=== PATIENT | female | born 1995 | race Caucasian/White ===

== ENCOUNTER 2017-02-04 20:27 | Emergency (ER) | payer OTHER ==
[2017-02-05 00:07] VITALS: BP 91/49
--- NOTE | 2017-02-05 00:17 | ED ---
Daron Gil Rebecca, scribed for Murray Darden MD on 02/04/17 at 2245 . Lower Extremity - HPI Summary HPI Summary: Pt is a 21 y/o F referred from [facility] who presents to ED c/o LLE pain for multiple weeks. Pain is currently moderate, ranked 4/10. Sx aggravated by movement and alleviated by nothing. Denies any other complaints. Is able to ambulate. - History of Current Complaint Chief Complaint: EDExtremityLower Stated Complaint: PAIN LT LEG Time Seen by Provider: 02/04/17 22:39 Hx Obtained From: Patient Hx Last Menstrual Period: over year and half ago, no bcp's, just stopped Onset of Pain: Prior to Arrival Onset/Duration: Weeks Severity Currently: Moderate Pain Intensity: 4 Pain Scale Used: 0-10 Numeric Location: Is Discrete @ - LLE Associated Signs And Symptoms: Positive: Negative Aggravating Factor(s): Movement Alleviating Factor(s): Nothing Able to Bear Weight: Yes - Allergies/Home Medications Allergies/Adverse Reactions: Allergies Allergy/AdvReac Type Severity Reaction Status Date / Time No Known Allergies Allergy Verified 12/05/15 09:51 PMH/Surg Hx/FS Hx/Imm Hx Endocrine/Hematology History: Denies: Hx Diabetes Cardiovascular History: Denies: Hx Congestive Heart Failure, Hx Hypertension, Hx Pacemaker/ICD History: Denies: Hx Renal Disease Musculoskeletal History: Reports: Other Musculoskeletal History - compression fx Sensory History: Denies: Hx Hearing Aid Psychiatric History: Reports: Hx Substance Abuse Denies: Hx Panic Disorder - Surgical History Surgery Procedure, Year, and Place: RIGHT HAND ABSCESS 2012, upper LEFT thigh ABSCESS 2013 Infectious Disease History: Yes Infectious Disease History: Denies: Hx Clostridium Difficile, Hx Hepatitis, Hx Human Immunodeficiency Virus (HIV), Hx Tuberculosis, History Other Infectious Disease, Traveled Outside the [place] in Last 30 Days - Family History Known Family History: Positive: Other - Colon [place] (mother) - Social History Alcohol Use: None Substance Use Type: Reports: Heroin Substance Use Comment - Amount & Last Used: 2 days ago Smoking Status (MU): Current Every Day Smoker Type: Cigarettes Amount Used/How Often: 1/2 PPD Length of Time of Smoking/Using Tobacco: 2 YEARS Have You Smoked in the Last Year: Yes Review of Systems Negative: Fever Positive: Arthralgia - LLE pain for multiple weeks All Other Systems Reviewed And Are Negative: Yes Physical Exam Triage Information Reviewed: Yes Vital Signs On Initial Exam: Initial Vitals Temp Pulse Resp BP Pulse Ox 99.2 F 73 16 94/66 99 02/04/17 20:34 02/04/17 20:34 02/04/17 20:34 02/04/17 20:34 02/04/17 20:34 Vital Signs Reviewed: Yes Appearance: Positive: Well-Appearing, No Pain Distress Skin: Positive: Warm Head/Face: Positive: Normal Head/Face Inspection Eyes: Positive: EV ENT: Positive: Hearing grossly normal Neck: Positive: Supple Respiratory/Lung Sounds: Positive: Clear to Auscultation, Breath Sounds Present Cardiovascular: Positive: RRR Musculoskeletal: Positive: Strength/ROM Intact, Other - no discernable swelling or tenderness. Negative: Lesly Sign Left, Lesly Sign Right Neurological: Positive: Alert, Oriented to Person Place, Time, Normal Gait Psychiatric: Positive: Affect/Mood Appropriate Diagnostics - Vital Signs Vital Signs Temp Pulse Resp BP Pulse Ox 02/04/17 20:34 99.2 F 73 16 94/66 99 - Laboratory Lab Statement: Any lab studies that have been ordered have been reviewed, and results considered in the medical decision making process. - Ultrasound No standard instances Ultrasound Interpretation: No Acute Changes - Venous Doppler Study: No DVT. Radiology report reviewed by ED physician and agrees. Ultrasound Interpretation Completed By: Radiologist Re-Evaluation - Re-Evaluation First Eval Re-Evaluation Time: 00:09 Change: Improved Comment: Discussed US results with the pt. Lower Extremity Course/Dx - Course Assessment/Plan: Pt is a 21 y/o F referred from [facility] who presents to ED c/o LLE pain for multiple weeks. Pain is currently moderate, ranked 4/10. Sx aggravated and alleviated by nothing. Denies any other complaints. Venous doppler reveals no acute findings. She will be D/C to home with Dx of leg pain and a follow up with her PCP. She understands and agrees. - Diagnoses Provider Diagnoses: Leg pain Discharge - Discharge Plan Condition: Stable Disposition: HOME Patient Education Materials: Leg Pain (ED) Additional Instructions: Follow up with your Primary Care Physician within the next 3 days. Return to ED for any returning or worsening symptoms. The documentation as recorded by the Daron lara Rebecca accurately reflects the service I personally performed and the decisions made by me, Murray Darden MD.
--- NOTE | 2017-02-05 07:39 | RAD ---
HISTORY: Left lower extremity pain COMPARISONS: None relevant TECHNIQUE: Multiple transverse and longitudinal ultrasound images were obtained of the left lower extremity from the level of the common femoral vein inferiorly through to the infrapopliteal veins using grayscale, color Doppler, and spectral Doppler imaging with and without compression and with augmentation. Comparison images were obtained of the contralateral common femoral vein. FINDINGS: VEINS: The venous system of the left lower extremity is compressible throughout its course, with normal flow on color Doppler imaging and normal response to augmentation on spectral Doppler imaging. SOFT TISSUES: Unremarkable. OTHER FINDINGS: None. IMPRESSION: NO LEFT LOWER EXTREMITY DEEP VEIN THROMBOSIS
== END 2017-02-05 00:28 | disposition home or self-care (01) ==
LOC: ED 20:27
DX: M79.605 Pain in left leg (principal); F17.210 Nicotine dependence, cigarettes, uncomplicated
CPT/HCPCS: 99282

== ENCOUNTER 2017-05-15 21:45 | Emergency (ER) | payer OTHER ==
[2017-05-15 21:54] VITALS: BP 97/54
--- NOTE | 2017-05-15 22:19 | UC ---
Henri Gil Stephanie, scribed for Myron Beck MD on 05/15/17 at 2205 . Lower Extremity/Ankle HPI - HPI Summary HPI Summary: Pt is a 22 y/o F with injured 2nd and 3ed toes on L foot this afternoon after it was stepped on. - History of Current Complaint Chief Complaint: UCLowerExtremity Stated Complaint: SORE TOE Time Seen by Provider: 05/15/17 21:46 Hx Obtained From: Patient Hx Last Menstrual Period: pt has not had a period in several years and is now in the process of findi Onset/Duration: Sudden Onset, Still Present Pain Intensity: 5 Pain Scale Used: 0-10 Numeric Aggravating Factor(s): Standing, Ambulation - Allergies/Home Medications Allergies/Adverse Reactions: Allergies Allergy/AdvReac Type Severity Reaction Status Date / Time No Known Allergies Allergy Verified 12/05/15 09:51 PMH/Surg Hx/FS Hx/Imm Hx - Surgical History Surgical History: Yes Surgery Procedure, Year, and Place: RIGHT HAND ABSCESS 2012, upper LEFT thigh ABSCESS 2013 - Family History Known Family History: Positive: Other - colon (mother) - Social History Alcohol Use: Rare Substance Use Type: Heroin Substance Use Comment - Amount & Last Used: last used 2 months ago Smoking Status (MU): Current Every Day Smoker Type: Cigarettes Amount Used/How Often: 1/2 PPD Length of Time of Smoking/Using Tobacco: 2 YEARS Have You Smoked in the Last Year: Yes Household Exposure Type: Cigarettes - Immunization History Most Recent Influenza Vaccination: none Most Recent Tetanus Shot: unknown Most Recent Pneumonia Vaccination: none Review of Systems Constitutional: Other - Negative: Fever Skin: Other - Negative: Skin break on toes All Other Systems Reviewed And Are Negative: Yes Physical Exam Triage Information Reviewed: Yes Vital Signs: Initial Vital Signs Temp 99.2 F 05/15/17 21:49 Pulse 75 05/15/17 21:49 Resp 18 05/15/17 21:49 BP 97/54 05/15/17 21:49 Pulse Ox 100 05/15/17 21:49 Vital Signs Reviewed: Yes - Additional Comments General: well-appearing, no pain distress Skin: warm, color reflects adequate perfusion, dry Head: normal Eyes: EOMI, EV ENT: normal Neck: supple, nontender Respiratory: CTA, breath sounds present Cardiovascular: RRR Abdomen: soft, nontender Bowel: present Musculoskeletal: normal, strength/ROM intact Neurological: normal, sensory/motor intact, A&O x3 Psychological: affect/mood appropriate Lower Extremity: Left 3nd and 4th toes tender to palpation. Good capillary refill. No skin break on toes. Diagnostics - Radiology L foot XRAY Xray Interpretation: No Acute Changes Radiology Interpretation Completed By: ED Physician - No fracture seen. Lower Extremity Course/Dx - Course Course Of Treatment: Pt is a 22 y/o F with injured 2nd and 3ed toes on L foot this afternoon after it was stepped on. Pt will be given post-op shoe. NO FXR SEEN BY MYSELF ON X-RAY. THIS WAS DISCUSSED WITH PATIENT. - Differential Dx/Diagnosis Provider Diagnoses: LEFT 2ND/3RD TOES CONTUSION/STRAIN/PAIN Discharge - Discharge Plan Condition: Stable Disposition: HOME Patient Education Materials: Foot Contusion (ED) Referrals: Geri Mack DO [Doctor of Osteopathy] - Additional Instructions: FOLLOW UP WITH YOUR DOCTOR. GET RECHECKED FOR ANY WORSENING OF YOUR CONDITION OR QUESTIONS OR CONCERNS. The documentation as recorded by the Henri lara Stephanie accurately reflects the service I personally performed and the decisions made by me, Myron Beck MD.
--- NOTE | 2017-05-16 07:39 | RAD ---
INDICATION: Pain at the dorsal aspect of toes one through 3 after trauma COMPARISON: None. TECHNIQUE: 3 views of the left foot were obtained. FINDINGS: The adequately corticated bones are properly aligned. Joint spaces appear maintained. No fracture, dislocation or focal bony abnormality is seen. IMPRESSION: Normal radiograph of the left foot. If the patient's symptoms persist, follow-up imaging is recommended.
== END 2017-05-15 22:18 | disposition home or self-care (01) ==
LOC: UCEAST 21:45
DX: S90.122A Contusion of left lesser toe(s) without damage to nail, initial encounter (principal); S96.912A Strain of unspecified muscle and tendon at ankle and foot level, left foot, initial encounter; W50.0XXA Accidental hit or strike by another person, initial encounter; Y93.9 Activity, unspecified; Y92.9 Unspecified place or not applicable; F11.90 Opioid use, unspecified, uncomplicated; F17.210 Nicotine dependence, cigarettes, uncomplicated
CPT/HCPCS: 99211; G0463

== ENCOUNTER 2017-07-17 15:54 | Emergency (ER) | payer OTHER | END 2017-07-17 18:19 | disposition left against medical advice (07) | LOC: UCEAST 15:54 | DX: K08.89 Other specified disorders of teeth and supporting structures (principal); Z53.21 Procedure and treatment not carried out due to patient leaving prior to being seen by health care provider ==

== ENCOUNTER 2017-08-28 19:38 | Emergency (ER) | payer MEDICAID, OTHER ==
[2017-08-28 20:03] VITALS: BP 106/65
--- NOTE | 2017-08-28 20:17 | UC ---
Upper Extremity HPI - HPI Summary HPI Summary: 22 you female requests evaluation for right upper extremity blood clot secondary to injecting heroin yesterday. Pain localized to upper arm above medial epicondyle on right. - History of Current Complaint Chief Complaint: UCUpperExtremity Stated Complaint: R ARM PAIN Time Seen by Provider: 08/28/17 19:59 Hx Obtained From: Patient Hx Last Menstrual Period: 5 yrs ago Onset/Duration: Gradual Onset Severity Initially: Mild Pain Intensity: 2 Location Of Pain: Is Discrete @ - right upper arm, medial Character: Dull - worse with palpation Aggravating Factor(s): Nothing Alleviating Factor(s): Other: - not touching area Associated Signs And Symptoms: Positive: Negative - no redness, temperature or bruising. Related History: Other: - injected heroin right lower arm - Risk Factors Septic Arthritis Risk Factor: IV Drug Abuse - Allergies/Home Medications Allergies/Adverse Reactions: Allergies Allergy/AdvReac Type Severity Reaction Status Date / Time No Known Allergies Allergy Verified 08/28/17 20:04 PMH/Surg Hx/FS Hx/Imm Hx - Additional Past Medical History Additional PMH: patient is addict for past 5 years. injects in forearms bilaterally. will start suboxone in next 5 days. Previously Healthy: Yes Other History Of: Hepatitis C - Surgical History Surgical History: Yes Surgery Procedure, Year, and Place: RIGHT HAND ABSCESS 2012, upper LEFT thigh ABSCESS 2013 - Family History Known Family History: Positive: None, Other - colon (mother) - Social History Occupation: Unemployed Lives: With Family - father Alcohol Use: Rare Substance Use Type: Heroin Substance Use Comment - Amount & Last Used: last used 2 months ago Smoking Status (MU): Light Every Day Tobacco Smoker Type: Cigarettes Amount Used/How Often: 1/2 PPD Length of Time of Smoking/Using Tobacco: 2 YEARS Have You Smoked in the Last Year: Yes Household Exposure Type: Cigarettes - Immunization History Most Recent Influenza Vaccination: none Most Recent Tetanus Shot: unknown Most Recent Pneumonia Vaccination: none Review of Systems Constitutional: Negative Skin: Negative Eyes: Negative ENT: Negative Respiratory: Negative Cardiovascular: Negative Gastrointestinal: Negative Genitourinary: Negative Motor: Negative Neurovascular: Negative Musculoskeletal: Myalgia - right upper arm Neurological: Negative Psychological: Negative Is Patient Immunocompromised?: No All Other Systems Reviewed And Are Negative: Yes Physical Exam Triage Information Reviewed: Yes Appearance: Well-Appearing Vital Signs: Initial Vital Signs Temp 98.9 F 08/28/17 20:00 Pulse 58 08/28/17 20:00 Resp 18 08/28/17 20:00 BP 106/65 08/28/17 20:00 Pulse Ox 100 08/28/17 20:00 Vital Signs Reviewed: Yes Eye Exam: Normal ENT Exam: Normal ENT: Positive: Normal ENT inspection Dental Exam: Normal Neck exam: Normal Neck: Positive: Supple, Nontender Respiratory Exam: Normal Respiratory: Positive: Chest non-tender, Lungs clear Cardiovascular Exam: Normal Cardiovascular: Positive: RRR, No Murmur Abdominal Exam: Normal Abdomen Description: Positive: Nontender, No Organomegaly Bowel Sounds: Positive: Present Musculoskeletal Exam: Normal Musculoskeletal: Positive: Other: - Right upper extremity: tender to palpation; no swelling, redness. No increased warmth compared to other arm. TENDER RIGHT AXILLA. Neurological Exam: Normal Psychological Exam: Normal Skin Exam: Normal Upper Extremity Course/Dx - Course Course Of Treatment: MDM: recommended that patient go to ED for further evaluation. Upper extremity clot possible; also early skin infection. Hx positive for MRSA. - Differential Dx/Diagnosis Differential Diagnosis/HQI/PQRI: Osteomyelitis, Other - cellulitis upper extremity venous clot Provider Diagnoses: Right upper arm tenderness in IV heroin user Discharge - Discharge Plan Condition: Stable Disposition: [facility] CARE FAC Patient Education Materials: Deep Vein Thrombosis (ED) Referrals: Emilie Ram MD [Primary Care Provider] - Additional Instructions: WE DISCUSSED: 1. IT is possible that you have a clot in a vein or the beginning of an infection or that this is normal. 2. I encourage you to go to ED now for further evaluation and treatment as appropriate.
== END 2017-08-28 20:43 | disposition short-term general hospital (02) ==
LOC: UCEAST 19:38
DX: M79.621 Pain in right upper arm (principal); F11.90 Opioid use, unspecified, uncomplicated; F17.210 Nicotine dependence, cigarettes, uncomplicated
CPT/HCPCS: 99212; G0463

== ENCOUNTER 2017-09-02 13:02 | Emergency (ER) | payer MEDICAID ==
[2017-09-02] MEDS ORDERED: Ibuprofen TAB* 600 MG PO ONE (14:13)
--- NOTE | 2017-09-02 14:47 | RAD ---
HISTORY: Pain and tenderness, right upper extremity COMPARISONS: None relevant TECHNIQUE: Multiple transverse and longitudinal ultrasound images were obtained of the right upper extremity from the level of the internal jugular vein inferiorly through to the infra-cubital veins using grayscale, color Doppler, and spectral Doppler imaging with and without compression and with augmentation. Comparison images were obtained of the contralateral internal jugular vein and subclavian vein. FINDINGS: VEINS: The venous system of the right upper extremity is compressible throughout its course, with normal flow on color Doppler imaging and normal response to augmentation on spectral Doppler imaging. SOFT TISSUES: Unremarkable. OTHER FINDINGS: None. IMPRESSION: NO RIGHT UPPER EXTREMITY DEEP VEIN THROMBOSIS.
--- NOTE | 2017-09-02 15:25 | RAD ---
INDICATION: Right-sided chest pain. COMPARISON: Comparison is made with a prior study from October 21, 2011. TECHNIQUE: Dual-energy PA and lateral views of the chest were obtained. FINDINGS: The heart is within normal limits in size. Mediastinal and hilar contours appear within normal limits. The lungs are clear. No pleural effusion or pneumothorax is seen. There is a mild dorsal lumbar scoliosis convex toward the left side. IMPRESSION: NO EVIDENCE FOR ACTIVE CARDIOPULMONARY DISEASE.
[2017-09-02 15:34] VITALS: BP 98/48
--- NOTE | 2017-09-02 16:16 | ED ---
Nicki Gil Gabriel, scribed for Yaw Street on 09/02/17 at 1416 . Upper Extremity Pain - HPI Summary HPI Summary: This patient is a 22 year old F presenting to [facility] accompanied by her partner with a chief complaint of RUE pain since 08-28-17. Pt was seen at that day and they suggest she come to the ED for an US to r/o a blood clot. She choose not to and wanted to wait it out and see if it resolved. Today she took a nap on her right side and when she awoke her left arm, neck, and back of skull were numb. The numbness resolved and pt called her PCP who insisted she come here to r/o blood clot. The patient rates the pain 2/10 in severity. Symptoms aggravated by lifting the left arm and palpitation. Patient reports right sided CP that radiates in to the back. Patient denies trauma, long trips, and use of BC. - History of Current Complaint Chief Complaint: EDExtremityUpper Stated Complaint: POTEN BLOOD CLOT/RT ARM Time Seen by Provider: 09/02/17 14:01 Hx Obtained From: Patient Hx Last Menstrual Period: 5 yrs ago Onset/Duration: Started Weeks Ago, Still Present Timing: Constant Severity Initially: Mild Severity Currently: Mild Pain Location: Arm - r Aggravating Factor(s): Movement Associated Signs & Symptoms: Positive: Numbness/Tingling, Other - right sided CP - Allergies/Home Medications Allergies/Adverse Reactions: Allergies Allergy/AdvReac Type Severity Reaction Status Date / Time No Known Allergies Allergy Verified 08/28/17 20:04 PMH/Surg Hx/FS Hx/Imm Hx Endocrine/Hematology History: Denies: Hx Diabetes Cardiovascular History: Denies: Hx Congestive Heart Failure, Hx Hypertension, Hx Pacemaker/ICD History: Denies: Hx Renal Disease Musculoskeletal History: Reports: Other Musculoskeletal History - compression fx Sensory History: Denies: Hx Hearing Aid Psychiatric History: Reports: Hx Substance Abuse Denies: Hx Panic Disorder - Surgical History Surgery Procedure, Year, and Place: RIGHT HAND ABSCESS 2012, upper LEFT thigh ABSCESS 2013 Infectious Disease History: No Infectious Disease History: Reports: Hx Hepatitis - hep c Denies: Hx Clostridium Difficile, Hx Human Immunodeficiency Virus (HIV), Hx Tuberculosis, History Other Infectious Disease, Traveled Outside the [place] in Last 30 Days - Family History Known Family History: Positive: Other - colon (mother) - Social History Lives: With Family Alcohol Use: Rare Substance Use Type: Reports: Heroin Substance Use Comment - Amount & Last Used: last used 2 months ago Smoking Status (MU): Light Every Day Tobacco Smoker Type: Cigarettes Amount Used/How Often: 1/2 PPD Length of Time of Smoking/Using Tobacco: 2 YEARS Have You Smoked in the Last Year: Yes Review of Systems Constitutional: Negative - trauma Positive: Other - RUE pain, right anterior CP Positive: Numbness All Other Systems Reviewed And Are Negative: Yes Physical Exam - Summary Physical Exam Summary: Appearance: Well appearing, no pain distress Skin: warm, dry, reflects adequate perfusion Head/face: normal Eyes: EOMI, EV ENT: normal Neck: supple, non-tender Respiratory: CTA, breath sounds present Cardiovascular: RRR, pulses symmetrical Abdomen: non-tender, soft Bowel: present Musculoskeletal: mild tenderness over right arm and chest Neuro: normal, sensory motor intact, A&Ox3 Triage Information Reviewed: Yes Vital Signs On Initial Exam: Initial Vitals Temp Pulse Resp BP Pulse Ox 97.8 F 61 14 95/47 99 09/02/17 13:06 09/02/17 13:06 09/02/17 13:06 09/02/17 13:06 09/02/17 13:06 Vital Signs Reviewed: Yes Diagnostics - Vital Signs Vital Signs Temp Pulse Resp BP Pulse Ox 09/02/17 13:06 97.8 F 61 14 95/47 99 - Laboratory Lab Statement: Any lab studies that have been ordered have been reviewed, and results considered in the medical decision making process. - Radiology CXR Radiology Interpretation Completed By: Radiologist - NO EVIDENCE FOR ACTIVE CARDIOPULMONARY DISEASE ED physician has reviewed this radiology report. - Ultrasound No standard instances Ultrasound Interpretation Completed By: Radiologist - Venous doppler study reveals, per radiology, NO RIGHT UPPER EXTREMITY DEEP VEIN THROMBOSIS. ED physician has reviewed this report Course/Dx - Course Assessment/Plan: Pt present for RUE pain and r/o blood clot. CXR reveals, per radiologist, NO EVIDENCE FOR ACTIVE CARDIOPULMONARY DISEASE. Venous doppler study reveals, per radiology, NO RIGHT UPPER EXTREMITY DEEP VEIN THROMBOSIS. Dx muscular skeletal pain of the right arm. In the ED course the patient was given motrin. Patient will be discharged and follow up from PCP in 3 days. The patient is agreeable with this plan. - Diagnoses Differential Diagnosis/HQI/PQRI: Positive: Strain, Sprain, Other - DVT Provider Diagnoses: Musculoskeletal pain of right upper extremity Discharge - Sign-Out/Discharge Documenting (check all that apply): Discharge - Discharge Plan Condition: Stable Disposition: HOME Prescriptions: Ibuprofen TAB* [Motrin TAB* 600 MG] 600 mg PO Q8H PRN #15 tab PRN Reason: Pain Patient Education Materials: Arm Pain (ED) Referrals: Emilie Ram MD [Primary Care Provider] - Additional Instructions: RETURN TO THE EMERGENCY DEPARTMENT FOR CHANGING OR WORSENING SYMPTOMS - Billing Disposition and Condition Condition: STABLE Disposition: HOME The documentation as recorded by the Nicki lara Gabriel accurately reflects the service I personally performed and the decisions made by Jad ray Emmanuel.
== END 2017-09-02 15:33 | disposition home or self-care (01) ==
LOC: ED 13:02
DX: M79.601 Pain in right arm (principal); F17.210 Nicotine dependence, cigarettes, uncomplicated
CPT/HCPCS: 71046; 99282; A9270-GY

== ENCOUNTER 2017-11-03 21:29 | Emergency (ER) | payer MEDICAID ==
[2017-11-03 21:41] VITALS: BP 91/56
--- NOTE | 2017-11-03 22:16 | UC ---
Dental HPI - HPI Summary HPI Summary: 22 y/o female presents to the urgent care c/o lower left tooth pain for one week. Pt reports she has some cavities around that molar. Pain is 6/10 w/ mild swelling. she has decrease appetite due to pain. She has taking Ibuprofen PO to alleviate symptoms w/o any relief. Pt denies fever, PRINCE, SOB, chest pain, abdominal pain, N/V/D. - History of Current Complaint Chief Complaint: UCDentalProblem Stated Complaint: tooth ache Time Seen by Provider: 11/03/17 22:00 Hx Obtained From: Patient Hx Last Menstrual Period: 10/24/2017 ?: No Onset/Duration: Gradual Onset, Lasting Weeks - 1 week, Still Present, Worse Since - yesterday Severity: Moderate Pain Intensity: 6 Pain Scale Used: 0-10 Numeric Aggravating Factor(s): Chewing Alleviating Factor(s): OTC Meds - Allergies/Home Medications Allergies/Adverse Reactions: Allergies Allergy/AdvReac Type Severity Reaction Status Date / Time No Known Allergies Allergy Verified 11/03/17 21:41 PMH/Surg Hx/FS Hx/Imm Hx Previously Healthy: Yes - Pt denies PMHX Other History Of: Hepatitis C - Surgical History Surgical History: Yes Surgery Procedure, Year, and Place: RIGHT HAND ABSCESS 2012, upper LEFT thigh ABSCESS 2013 - Family History Family History: colon (mother), lymphoma - Social History Occupation: Employed Full-time Lives: With Family Alcohol Use: Rare Substance Use Type: Heroin Substance Use Comment - Amount & Last Used: not sure when she used last Smoking Status (MU): Light Every Day Tobacco Smoker Type: Cigarettes Amount Used/How Often: 1/2 PPD Length of Time of Smoking/Using Tobacco: 2 YEARS Have You Smoked in the Last Year: Yes Household Exposure Type: Cigarettes - Immunization History Most Recent Influenza Vaccination: none Most Recent Tetanus Shot: unknown Most Recent Pneumonia Vaccination: none Review of Systems Constitutional: Negative Skin: Negative Eyes: Negative ENT: Dental Pain Respiratory: Negative Cardiovascular: Negative Gastrointestinal: Negative Genitourinary: Negative Motor: Negative Neurovascular: Negative Musculoskeletal: Negative Neurological: Headache Psychological: Negative Is Patient Immunocompromised?: No All Other Systems Reviewed And Are Negative: Yes Physical Exam - Summary Physical Exam Summary: Vital Signs Reviewed: Yes General: well developed. well nourished female sitting in the examining table w/ o any apparent distress Eyes: Positive: Conjunctiva Clear - PERRLA, EOMI, fundi grossly normal ENT: Positive: Normal ENT inspection, Hearing grossly normal, Pharyngeal erythema, TMs normal, Uvula midline. Negative: Tonsillar swelling, Tonsillar exudate, Trismus Dental: Positive: Percussion Tenderness @ - molar 19, Gross Decay/Caries @ - molar 19, Abscess @ - molar 19, Cervical Lymphadenopathy - B/L anterior, Neck: Positive: Supple, Nontender Respiratory: Positive: Chest non-tender, Lungs clear, Normal breath sounds, No respiratory distress Cardiovascular: Positive: RRR, No Murmur, Pulses Normal, Brisk Capillary Refill Abdomen Description: Positive: Nontender, No Organomegaly, Soft. Negative: CVA Tenderness (R), CVA Tenderness (L) Bowel Sounds: Positive: Present Musculoskeletal: Positive: Strength Intact, ROM Intact, No Edema Neurological Exam: Normal Psychological Exam: Normal Skin Exam: Normal Triage Information Reviewed: Yes Vital Signs: Initial Vital Signs Temp 99.0 F 11/03/17 21:37 Pulse 70 11/03/17 21:37 Resp 12 11/03/17 21:37 BP 91/56 11/03/17 21:37 Pulse Ox 100 11/03/17 21:37 Dental Complaint Course/Dx - Course Course Of Treatment: 22 y/o female presents to the urgent care c/o lower left tooth pain for one week. Pt reports she has some cavities around that molar. Pain is 6/10 w/ mild swelling. she has decrease appetite due to pain. She has taking Ibuprofen PO to alleviate symptoms w/o any relief. Pt denies fever, PRINCE, SOB, chest pain, abdominal pain, N/V/D. Hx obtained. Pt with dental abscess and cavities on molar #19 on examination. Pt given viscous Lidocaine and first dose of Clindamycin PO at the clinic to alleviate symptoms. Pt Rx Clindamycin PO and Tylenol PO for pain. Pt strongly advised to f/u with Dentist as soon as possible further evaluation and treatment. Pt understood and agreed with plan of care. Left the clinic ambulating. - Differential Dx/Diagnosis Differential Diagnosis/Dx: Dental Abscess, Dental Caries, Fractured Tooth, Odontogenic Pain, Peridontic Disease Provider Diagnoses: 1- Dental abscess aroun molar. 2- Toothache Discharge - Sign-Out/Discharge Documenting (check all that apply): Discharge/Admit/Transfer - D/c home - Discharge Plan Condition: Stable Disposition: HOME Prescriptions: Acetaminophen TAB* [Tylenol TAB*] 650 mg PO Q6H PRN #20 tab PRN Reason: Pain Clindamycin Cap(NF) [Clindamycin Cap 300 mg Cap(NF)] 300 mg PO TID #28 cap Patient Education Materials: Dental Abscess (ED) Referrals: Emilie Ram MD [Primary Care Provider] - 2 Days Additional Instructions: 1-Please take full course of antibiotic to avoid resistance. apply viscous lidocaine as directed to alleviate symptoms. 2- Take Tylenol as instructed after meals to alleviate pain and swelling. 3- F/u with your Dentist or Dental List provided as soon as possible for further treatment. 4- If symptoms do not improve or worsen please return to the urgent care or f/u with your PCP for further evaluation and treatment - Billing Disposition and Condition Condition: STABLE Disposition: HOME
[2017-11-03] MEDS ORDERED: Clindamycin CAP* 150 MG PO ONE (22:18)
[2017-11-03] MEDS ORDERED: Lidocaine 2% VISCOUS* 15 ML UDC SWISH SPIT ONE (22:22)
== END 2017-11-03 22:35 | disposition home or self-care (01) ==
LOC: UCEAST 21:29
DX: K04.7 Periapical abscess without sinus (principal); K08.89 Other specified disorders of teeth and supporting structures; Z86.19 Personal history of other infectious and parasitic diseases; F17.210 Nicotine dependence, cigarettes, uncomplicated
CPT/HCPCS: 99212; A9270-GY; G0463

== ENCOUNTER 2017-11-27 19:00 | Emergency (ER) | payer MEDICAID ==
[2017-11-27] MEDS ORDERED: NS 0.9% 1000 ML* 1,000 ML IV ONE (19:37)
[2017-11-27] MEDS ORDERED: Ketorolac INJ* 30 MG/ML 1 ML VIAL IV PUSH ONE (19:37)
[2017-11-27] MEDS ORDERED: Clindamycin 600 MG IVPREMIX(* 600 MG/50 ML SDV IV ONE (19:37)
[2017-11-27 20:09] LABS: ABS Basophils 0 10^3/ul (0-0.2); ABS Eosinophils 0 10^3/ul (0-0.6); ABS Lymphocytes 1.7 10^3/ul (1.0-4.8); ABS Monocytes 0.5 10^3/ul (0-0.8); ABS Nucleated RBC 0 10^3/ul; Eosinophil % 0.4 % (0-6); Hematocrit 32 % (35-47); Hemoglobin 11.3 g/dl (12.0-16.0); Lymphocyte % 23.2 % (25-47); Mean Corpuscular HGB Conc 36 g/dl (31-36); Mean Corpuscular Hemoglobin 31 pg (27-31); Mean Corpuscular Volume 86 fL (80-97); Mean Platelet Volume 6.3 um3 (7.4-10.4); Nucleated Red Blood Cells % 0; Platelet Count 162 10^3/ul (150-450); Red Blood Count 3.69 10^6/ul (4.00-5.40); Red Cell Distribution Width 13 % (10.5-15); White Blood Count 7.3 10^3/ul (3.5-10.8)
--- NOTE | 2017-11-27 20:09 | RAD ---
HISTORY: fever, CP COMPARISONS: September 02, 2017 VIEWS: 4: Frontal dual-energy and lateral views of the chest. FINDINGS: CARDIOMEDIASTINAL SILHOUETTE: The cardiomediastinal silhouette is normal. STEFF: The steff are normal. PLEURA: The costophrenic angles are sharp. No pleural abnormalities are noted. LUNG PARENCHYMA: The lungs are clear. ABDOMEN: The upper abdomen is clear. There is no subphrenic gas. BONES AND SOFT TISSUES: No bone or soft tissue abnormalities are noted. OTHER: None. IMPRESSION: NO ACTIVE CARDIOPULMONARY DISEASE.
--- NOTE | 2017-11-27 20:27 | RAD ---
HISTORY: fever, arm pain after missing while injecting drug COMPARISONS: None relevant TECHNIQUE: Multiple transverse and longitudinal ultrasound images were obtained of the right upper extremity from the level of the internal jugular vein inferiorly through to the infra-cubital veins using grayscale, color Doppler, and spectral Doppler imaging with and without compression and with augmentation. Comparison images were obtained of the contralateral internal jugular vein and subclavian vein. FINDINGS: VEINS: The venous system of the right upper extremity is compressible throughout its course, with normal flow on color Doppler imaging and normal response to augmentation on spectral Doppler imaging. SOFT TISSUES: Unremarkable. OTHER FINDINGS: None. IMPRESSION: NO RIGHT UPPER EXTREMITY DEEP VEIN THROMBOSIS
[2017-11-27 20:28] LABS: EGFR Non-African American 88.4 (>60)
[2017-11-27 21:41] VITALS: BP 137/79
--- NOTE | 2017-11-27 23:47 | ED ---
Nicki Gil Gabriel, scribed for Narinder Hdz MD on 11/27/17 at 1932 . HPI Febrile Illness - HPI Summary HPI Summary: This patient is a 22 year old F presenting to [facility] with a chief complaint of fever of 104F since yesterday morning when she woke up. Pt states she had a dental infection a couple weeks ago and did not finish her abx. Patient reports general malaise, myalgia, swelling on the RUE, and sore throat. The patient rates the pain 5/10 in severity. She states she is very paranoid about blood clots in her RUE. She has no hx of blood clots and no fmhx of blood clots. She believes she is at risk because 5 days ago she injected heroin into this arm and states she may have missed, she tried 2-3 times. She is an occasional user and states she tries to use clean needles. Has not had period in a couple years. - History of Current Complaint Chief Complaint: EDGeneral Time Seen by Provider: 11/27/17 19:28 Hx Obtained From: Patient Hx Last Menstrual Period: 10/24/2017 Onset/Duration: Started Days Ago, Still Present Timing: Constant Initial Severity: Moderate Current Severity: Moderate Pain Intensity: 5 Pain Scale Used: 0-10 Numeric Associated Signs and Symptoms: Myalgia, Sore Throat - Allergy/Home Medications Allergies/Adverse Reactions: Allergies Allergy/AdvReac Type Severity Reaction Status Date / Time No Known Allergies Allergy Verified 11/27/17 19:10 PMH/Surg Hx/FS Hx/Imm Hx Endocrine/Hematology History: Denies: Hx Diabetes Cardiovascular History: Denies: Hx Atrial Fibrillation, Hx Congestive Heart Failure, Hx Hypertension , Hx Pacemaker/ICD History: Denies: Hx Renal Disease Musculoskeletal History: Reports: Other Musculoskeletal History - compression fx Sensory History: Denies: Hx Hearing Aid Psychiatric History: Reports: Hx Substance Abuse Denies: Hx Panic Disorder - Surgical History Surgery Procedure, Year, and Place: RIGHT HAND ABSCESS 2012, upper LEFT thigh ABSCESS 2013 Infectious Disease History: No Infectious Disease History: Reports: Hx Hepatitis - Hep C Denies: Hx Clostridium Difficile, Hx Human Immunodeficiency Virus (HIV), Hx Tuberculosis, History Other Infectious Disease, Traveled Outside the [place] in Last 30 Days - Family History Known Family History: Positive: None, Other - colon (mother) Family History: colon (mother), lymphoma - Social History Alcohol Use: Rare Substance Use Type: Reports: Heroin Substance Use Comment - Amount & Last Used: not sure when she used last Smoking Status (MU): Light Every Day Tobacco Smoker Type: Cigarettes Amount Used/How Often: 1/2 PPD Length of Time of Smoking/Using Tobacco: 2 YEARS Have You Smoked in the Last Year: Yes Review of Systems Positive: Fever, Other - general malaise Positive: Sore Throat Positive: Myalgia, Edema - RUE w/ pain All Other Systems Reviewed And Are Negative: Yes Physical Exam - Summary Physical Exam Summary: Appearance: Well appearing, no pain distress Skin: warm, dry, reflects adequate perfusion, there are track llanes on the dorsal thumb, no palpable cords in the arm, no palpable masses, No splinter hemorrhages on the fingers Head/face: normal Eyes: EOMI, EV ENT: exudates on both tonsils, no abscess, tonsils are slightly enlarged Neck: supple, non-tender Respiratory: CTA, breath sounds present Cardiovascular: no murmur, slightly tachycardic, Abdomen: non-tender, soft Bowel Sounds: present Musculoskeletal: strength/ROM intact, minor swelling in the dorsal hand Neuro: normal, sensory motor intact, A&Ox3 Triage Information Reviewed: Yes Vital Signs On Initial Exam: Initial Vitals Temp Pulse Resp BP Pulse Ox 102.2 F 110 20 94/56 99 11/27/17 19:05 11/27/17 19:05 11/27/17 19:05 11/27/17 19:05 11/27/17 19:05 Vital Signs Reviewed: Yes Diagnostics - Vital Signs Vital Signs Temp Pulse Resp BP Pulse Ox 11/27/17 19:05 102.2 F 110 20 94/56 99 - Laboratory Lab Results: Lab Results 11/27/17 11/27/17 11/27/17 Range/Units 19:42 20:00 20:00 WBC 7.3 (3.5-10.8) 10^3/ul RBC 3.69 L (4.00-5.40) 10^6/ul Hgb 11.3 L (12.0-16.0) g/dl Hct 32 L (35-47) % MCV 86 (80-97) fL MCH 31 (27-31) pg MCHC 36 (31-36) g/dl RDW 13 (10.5-15) % Plt Count 162 (150-450) 10^3/ul MPV 6.3 L (7.4-10.4) um3 Neut % (Auto) 68.5 (38-83) % Lymph % (Auto) 23.2 L (25-47) % [place] % (Auto) 7.5 H (0-7) % Eos % (Auto) 0.4 (0-6) % Baso % (Auto) 0.4 (0-2) % Absolute Neuts (auto) 5.0 (1.5-7.7) 10^3/ul Absolute Lymphs (auto) 1.7 (1.0-4.8) 10^3/ul Absolute Monos (auto) 0.5 (0-0.8) 10^3/ul Absolute Eos (auto) 0 (0-0.6) 10^3/ul Absolute Basos (auto) 0 (0-0.2) 10^3/ul Absolute Nucleated RBC 0 10^3/ul Nucleated RBC % 0 Sodium 132 L (135-145) mmol/L Potassium 3.9 (3.5-5.0) mmol/L Chloride 97 L (101-111) mmol/L Carbon Dioxide 30 (22-32) mmol/L Anion Gap 5 (2-11) mmol/L BUN 7 (6-24) mg/dL Creatinine 0.81 (0.51-0.95) mg/dL Est GFR ( Amer) 113.7 (>60) Est GFR (Non-Af Amer) 88.4 (>60) BUN/Creatinine Ratio 8.6 (8-20) Glucose 93 (70-100) mg/dL Calcium 9.3 (8.6-10.3) mg/dL C-Reactive Protein 86.01 H (< 5.00) mg/L Beta HCG, Quant < 0.60 mIU/mL Group A Strep Rapid Negative (Negative) Result Diagrams: 11/27/17 20:00 11/27/17 20:00 Lab Statement: Any lab studies that have been ordered have been reviewed, and results considered in the medical decision making process. - Radiology CXR Radiology Interpretation Completed By: Radiologist - NO ACTIVE CARDIOPULMONARY DISEASE. ED physician has reviewed this radiology report. - Additional Comments Diagnostic Additional Comments: Venous Doppler study reveals, per radiologist, NO RIGHT UPPER EXTREMITY DEEP VEIN THROMBOSIS ED physician has reviewed this radiology report. Re-Evaluation - Re-Evaluation First Eval Re-Evaluation Time: 21:23 Change: Improved Comment: Pt is feeling better, I discussed admission with her but she denied it. States she would rather go home. Course/Dx - Course Course Of Treatment: Patient with fever and exudative tonsils with a negative strep. She also has an IV drug user with discomfort in her right forearm. DVT scan is negative and there is no palpable cord. Discussed the case with the hospitalist regarding possibility of bacteremia and/or endocarditis. Currently she does not meet [place] criteria for endocarditis. I discussed all this with her and her father. After IV fluids, clindamycin and Toradol she is feeling much better. She has elected to be discharged and to return with worsening, persistent fevers despite treatment, etc. She will be called to return if blood cultures are positive. She will follow up closely with primary care physician. - Febrile Illness Differential Diagnoses: Other: - Viral tonsillitis, bacterial tonsillitis, bacteremia, DVT, endocarditis, sepsis - Diagnoses Provider Diagnoses: IV drug user, Fever, Tonsillitis - Provider Notifications Discussed Care Of Patient With: Evaristo Mcintosh Time Discussed With Above Provider: 21:20 Instructed by Provider To: Admit As Inpatient Discharge - Sign-Out/Discharge Documenting (check all that apply): Discharge/Admit/Transfer - Discharge Plan Condition: Improved Disposition: HOME Prescriptions: Clindamycin Cap(NF) [Clindamycin Cap 300 mg Cap(NF)] 300 mg PO Q6H #36 cap Patient Education Materials: Narcotic Abuse (ED), Tonsillitis (ED) Referrals: Emilie Ram MD [Primary Care Provider] - Additional Instructions: Do not use injection drugs. Return with persistent fevers, new symptoms, worse or other concerns as discussed. Call your doctor first thing in the morning to follow-up. We will call you with positive blood culture results. - Billing Disposition and Condition Condition: STABLE Disposition: Home The documentation as recorded by the Nicki lara Gabriel accurately reflects the service I personally performed and the decisions made by me, Narinder Hdz MD.
== END 2017-11-27 21:40 | disposition home or self-care (01) ==
LOC: ED 19:00
DX: R50.9 Fever, unspecified (principal); J03.90 Acute tonsillitis, unspecified; M79.601 Pain in right arm; F19.90 Other psychoactive substance use, unspecified, uncomplicated; F17.210 Nicotine dependence, cigarettes, uncomplicated
CPT/HCPCS: 36415; 71046; 80048; 84702; 85025; 86140; 87040; 87651; 96374; 96375; 99283; J1885

== ENCOUNTER 2018-03-25 21:04 | Emergency (ER) | payer OTHER ==
[2018-03-25 21:22] VITALS: BP 91/60
--- NOTE | 2018-03-25 22:28 | UC ---
Skin Complaint HPI - HPI Summary HPI Summary: states she woke up this morning and noticed a bruise on her right hip which hurts when she touches it. She does not remember bumping into anything but states she is an IVDA and last injected heroine this morning as well. She states she is Hepatitis C AB positive, HIV negative and will have f/u with PCP in 17 days. She denies any bleeding from nose, rectum/stools, melena. States she has no menstrual periods for the past 7 years. - History of Current Complaint Chief Complaint: UCGeneralIllness Time Seen by Provider: 03/25/18 21:13 Stated Complaint: HIP BRUISING Hx Obtained From: Patient Hx Last Menstrual Period: 7 years ago ?: No Onset/Duration: Sudden Onset, Lasting Hours Timing: Constant Onset Severity: Mild Current Severity: Mild Pain Intensity: 2 Pain Scale Used: 0-10 Numeric Location: Discrete Aggravating Factor(s): Nothing Alleviating Factor(s): Nothing Associated Signs & Symptoms: Positive: Negative - Allergy/Home Medications Allergies/Adverse Reactions: Allergies Allergy/AdvReac Type Severity Reaction Status Date / Time No Known Allergies Allergy Verified 03/25/18 21:17 Home Medications: Home Medications Ibuprofen TAB* [Advil TAB*] 600 mg PO Q6H PRN 03/25/18 [History Confirmed ] Trazodone HCl 100 mg PO QPM 03/25/18 [History Confirmed 03/25/18] Review of Systems Constitutional: Negative Skin: Bruising Gastrointestinal: Other - constipation All Other Systems Reviewed And Are Negative: Yes PMH/Surg Hx/FS Hx/Imm Hx Previously Healthy: Yes Psychological History: Anxiety Other History Of: Hepatitis C - Surgical History Surgical History: Yes Surgery Procedure, Year, and Place: RIGHT HAND ABSCESS 2012, upper LEFT thigh ABSCESS 2013 - Family History Known Family History: Positive: None, Other - colon (mother) Family History: colon (mother), lymphoma - Social History Alcohol Use: Rare Substance Use Type: Heroin Substance Use Comment - Amount & Last Used: last used 03/25/2018 Smoking Status (MU): Light Every Day Tobacco Smoker Type: Cigarettes Amount Used/How Often: 1/2 PPD Length of Time of Smoking/Using Tobacco: 2 YEARS Have You Smoked in the Last Year: Yes Household Exposure Type: Cigarettes - Immunization History Most Recent Influenza Vaccination: none Most Recent Tetanus Shot: unknown Most Recent Pneumonia Vaccination: none Physical Exam Triage Information Reviewed: Yes Appearance: Well-Appearing, No Pain Distress, Well-Nourished Vital Signs: Initial Vital Signs Temp 99.8 F 03/25/18 21:18 Pulse 90 03/25/18 21:18 Resp 18 03/25/18 21:18 BP 91/60 03/25/18 21:18 Pulse Ox 97 03/25/18 21:18 Vital Signs Reviewed: Yes Eyes: Positive: Conjunctiva Clear ENT: Positive: Hearing grossly normal Neck: Positive: Supple, Nontender, No Lymphadenopathy Respiratory: Positive: Chest non-tender, Lungs clear, Normal breath sounds Cardiovascular: Positive: RRR, No Murmur, Pulses Normal Abdomen Description: Positive: Nontender, No Organomegaly, Soft Bowel Sounds: Positive: Present Musculoskeletal: Positive: Strength Intact, ROM Intact Skin Exam: Other - hematoma right hip 4x2.5cm tender to touch Course/Dx - Course Course Of Treatment: hematoma on right hip tender to palpation possibly due to trauma, patient noticed when she was on opioids IVDA. She will follow up with PCP states she will get blood tests since she wants to start on SUboxone. - Diagnoses Provider Diagnoses: Hematoma right hip Discharge - Sign-Out/Discharge Documenting (check all that apply): Patient Departure All imaging exams completed and their final reports reviewed: No Studies - Discharge Plan Condition: Stable Disposition: HOME Patient Education Materials: Contusion in Adults (ED), Hematoma (ED) Referrals: Emilie Ram MD [Primary Care Provider] - - Billing Disposition and Condition Condition: STABLE Disposition: Home
== END 2018-03-25 22:05 | disposition home or self-care (01) ==
LOC: UCEAST 21:04
DX: S70.01XA Contusion of right hip, initial encounter (principal); X58.XXXA Exposure to other specified factors, initial encounter; Y92.9 Unspecified place or not applicable; B19.20 Unspecified viral hepatitis C without hepatic coma; F11.10 Opioid abuse, uncomplicated; F41.9 Anxiety disorder, unspecified; F17.210 Nicotine dependence, cigarettes, uncomplicated
CPT/HCPCS: 99211; G0463

== ENCOUNTER 2019-05-19 18:05 | Emergency (ER) | payer OTHER ==
[2019-05-19 18:16] VITALS: BP 100/68
[2019-05-19] MEDS ORDERED: Ibuprofen TAB* 600 MG PO ONE (19:22)
[2019-05-19] MEDS ORDERED: Amoxicillin/Clavulanate TAB* 875 MG PO ONE (19:23)
--- NOTE | 2019-05-19 19:23 | UC ---
UC General HPI - HPI Summary HPI Summary: worsening headache and maxillary sinus pain for the past 2 days---patient has very poor dentition and she cannot tell if it is her upper teeth or her sinus that hurts more - History of Current Complaint Chief Complaint: UCRespiratory Stated Complaint: HEADACHE, FACIAL PAIN Time Seen by Provider: 05/19/19 19:15 Hx Obtained From: Patient Hx Last Menstrual Period: 2 years ago Onset/Duration: Sudden Onset, Lasting Days - 2, Still Present Timing: Constant Pain Intensity: 9 Pain Location at: upper jaw/maxillary sinus Associated Signs & Symptoms: Positive: Headache - Allergy/Home Medications Allergies/Adverse Reactions: Allergies Allergy/AdvReac Type Severity Reaction Status Date / Time No Known Allergies Allergy Verified 05/19/19 18:16 PMH/Surg Hx/FS Hx/Imm Hx Previously Healthy: No Psychological History: Other - insomnia Other History Of: Hepatitis C - Surgical History Surgical History: Yes Surgery Procedure, Year, and Place: RIGHT HAND ABSCESS 2012, upper LEFT thigh ABSCESS 2013 - Family History Known Family History: Positive: None, Other - colon (mother) Family History: colon (mother), lymphoma - Social History Occupation: Unemployed Lives: With Family Alcohol Use: Occasionally Substance Use Type: Heroin Substance Use Comment - Amount & Last Used: last used 6 months ago Smoking Status (MU): Light Every Day Tobacco Smoker Type: Cigarettes Amount Used/How Often: 1/2 PPD Length of Time of Smoking/Using Tobacco: 2 YEARS Have You Smoked in the Last Year: Yes Household Exposure Type: Cigarettes - Immunization History Most Recent Influenza Vaccination: none Most Recent Tetanus Shot: unknown Most Recent Pneumonia Vaccination: none Review of Systems All Other Systems Reviewed And Are Negative: Yes Constitutional: Positive: Negative Skin: Positive: Negative Eyes: Positive: Negative ENT: Positive: Dental Pain, Sinus Pain/Tenderness Respiratory: Positive: Negative Cardiovascular: Positive: Negative Gastrointestinal: Positive: Negative Genitourinary: Positive: Negative Motor: Positive: Negative Neurovascular: Positive: Negative Musculoskeletal: Positive: Negative Neurological: Positive: Negative Psychological: Positive: Negative Is Patient Immunocompromised?: No Physical Exam Triage Information Reviewed: Yes Appearance: No Pain Distress, Well-Nourished, Ill-Appearing - older than stated age Vital Signs: Initial Vital Signs Temp 98.6 F 05/19/19 18:13 Pulse 68 05/19/19 18:13 Resp 12 05/19/19 18:13 BP 100/68 05/19/19 18:13 Pulse Ox 100 05/19/19 18:13 Vital Signs Reviewed: Yes Eye Exam: Normal Eyes: Positive: Conjunctiva Clear ENT Exam: Other ENT: Positive: Normal ENT inspection, Hearing grossly normal, Pharynx normal, TMs normal, Dental tenderness, Sinus tenderness, Uvula midline. Negative: Nasal congestion, Tonsillar swelling, Tonsillar exudate, Trismus, Muffled voice , Hoarse voice Dental Exam: Other Dental: Positive: Percussion Tenderness @ - multiple, Gross Decay/Caries @ - multiple Neck exam: Normal Neck: Positive: Supple, Nontender, No Lymphadenopathy Respiratory Exam: Normal Respiratory: Positive: Chest non-tender, No respiratory distress, No accessory muscle use Cardiovascular Exam: Normal Cardiovascular: Positive: RRR, Pulses Normal, Brisk Capillary Refill Musculoskeletal Exam: Normal Musculoskeletal: Positive: Strength Intact, ROM Intact, No Edema Neurological Exam: Normal Neurological: Positive: Alert, Muscle Tone Normal Psychological Exam: Normal Skin Exam: Normal Course/Dx - Course Course Of Treatment: Augmentin, ibuprofen follow with dentist this week - Diagnoses Provider Diagnosis: Dental caries, Sinusitis Discharge ED - Sign-Out/Discharge Documenting (check all that apply): Patient Departure All imaging exams completed and their final reports reviewed: No Studies - Discharge Plan Condition: Stable Disposition: HOME Prescriptions: Amoxicillin/Clavulanate TAB* [Augmentin TAB 875*] 875 mg PO BID #19 tab Ibuprofen TAB* [Motrin TAB* 600 MG] 600 mg PO Q6H PRN #30 tab PRN Reason: Pain - Moderate Patient Education Materials: Dental Abscess (ED), Sinusitis (ED), Toothache (ED ) Referrals: Emilie Ram MD [Primary Care Provider] - Additional Instructions: Follow with dentist this week - Billing Disposition and Condition Condition: STABLE Disposition: Home
== END 2019-05-19 19:34 | disposition home or self-care (01) ==
LOC: UCEAST 18:05
DX: J32.0 Chronic maxillary sinusitis (principal); K02.9 Dental caries, unspecified; F17.210 Nicotine dependence, cigarettes, uncomplicated; B19.20 Unspecified viral hepatitis C without hepatic coma
CPT/HCPCS: 99212; A9270-GY; G0463

== ENCOUNTER 2020-02-11 12:45 | Observation (INO) ==
[2020-02-11] MEDS ORDERED: NS 0.9% 1000 ml BAG 1,000 ML IV.FLUID IV ONE (13:08)
[2020-02-11] MEDS ORDERED: cefTRIAXone 1 gm/50 mL NS BAG 1 GM/50 ML BAG IV ONE (13:08)
[2020-02-11] MEDS ORDERED: Senna TAB 8.6 mg TAB PO PRN (14:05)
[2020-02-11] MEDS ORDERED: Ondansetron 4 mg VIAL 2 MG/ML 2 ml VIAL IV PRN (14:05)
[2020-02-11 14:13] LABS: ABS Lymphocytes 0.6 10^3/ul (1.0-4.8); ABS Monocytes 0.7 10^3/ul (0-0.8); ABS Neutrophils 15.5 10^3/ul (1.5-7.7); Hematocrit 29 % (35-47); Hemoglobin 10.1 g/dL (12.0-16.0); Lymphocyte % 3.3 %; Mean Corpuscular HGB Conc 35 g/dL (31-36); Mean Corpuscular Hemoglobin 30 pg (27-31); Mean Corpuscular Volume 85 fL (80-97); Mean Platelet Volume 7.4 fL (7.4-10.4); Platelet Count 164 10^3/uL (150-450); Red Blood Count 3.36 10^6 /uL (3.70-4.87); Red Cell Distribution Width 12 % (10-15); White Blood Count 16.9 10^3/uL (3.5-10.8)
[2020-02-11] MEDS ORDERED: Nicotine GUM 2MG FRUIT FLAVOR PO PRN (14:27)
[2020-02-11 14:29] LABS: Activated Partial Thrombo Time 32.9 seconds (26.0-38.0); INR 1.38 (0.82-1.09)
[2020-02-11 14:33] LABS: Albumin 3.7 g/dL (3.2-5.2); Albumin/Globulin Ratio 1.2 (1-3); BUN/Creatinine Ratio 9.4 (8-20); C Reactive Protein 255.62 mg/L (<8.01); Calcium 8.6 mg/dL (8.6-10.3); EGFR African American 99.4 (>60); EGFR Non-African American 82.2 (>60); Globulin 3.1 g/dL (2-4); Potassium 3.3 mmol/L (3.5-5.0); Total Bilirubin 0.6 mg/dL (0.2-1.0); Total Protein 6.8 g/dL (6.4-8.9)
[2020-02-11] MEDS: NS 0.9% 1000 ml BAG 1,000 ML IV SCH (15:34)
[2020-02-11] MEDS: KCL 20 MEQ/100 ML IVPREMIX 20 MEQ/100 ML BAG IV SCH ×2 (16:13→23:34)
[2020-02-11] MEDS ORDERED: Buprenorp/Nalox 4-1 MG FILM SL FILM ONE (18:00)
[2020-02-11 19:06] LABS: Urine Appearance Clear; Urine Bilirubin Negative (Negative); Urine Blood 1+ (Negative); Urine Color Yellow; Urine Glucose Negative (Negative); Urine Ketones Negative (Negative); Urine Nitrite Negative (Negative); Urine Protein Negative (Negative); Urine Specific Gravity 1.008 (1.010-1.030); Urine Urobilinogen Positive (Negative)
[2020-02-11 19:39] LABS: Urine Bacteria Absent (Absent); Urine Red Blood Cell Trace(0-2/hpf) (Absent); Urine Squamous Epithelial Cell Present (Absent); Urine White Blood Cell 2+(11-20/hpf) (Absent)
[2020-02-12] MEDS: NS 0.9% 1000 ml BAG 1,000 ML IV SCH (01:00)
[2020-02-12 06:03] LABS: CO2 Carbon Dioxide 16 mmol/L (22-32); Sodium 141 mmol/L (135-145)
[2020-02-12 06:07] LABS: Chloride 115 mmol/L (101-111)
[2020-02-12 06:09] LABS: BUN/Creatinine Ratio 6.3 (8-20); Blood Urea Nitrogen 4 mg/dL (6-24); EGFR African American 137.9 (>60); Glucose 148 mg/dL (70-100)
[2020-02-12 06:11] LABS: Anion Gap 10 mmol/L (2-11)
[2020-02-12 07:01] LABS: ABS Lymphocytes 0.8 10^3/ul (1.0-4.8); ABS Monocytes 0.5 10^3/ul (0-0.8); ABS Neutrophils 13.4 10^3/ul (1.5-7.7); Hematocrit 30 % (35-47); Hemoglobin 10.4 g/dL (12.0-16.0); Lymphocyte % 5.7 %; Mean Corpuscular HGB Conc 35 g/dL (31-36); Mean Corpuscular Hemoglobin 30 pg (27-31); Mean Corpuscular Volume 86 fL (80-97); Mean Platelet Volume 7.5 fL (7.4-10.4); Platelet Count 179 10^3/uL (150-450); Red Blood Count 3.47 10^6 /uL (3.70-4.87); Red Cell Distribution Width 13 % (10-15); White Blood Count 14.8 10^3/uL (3.5-10.8)
[2020-02-12 08:26] VITALS: BP 96/54
[2020-02-12] MEDS ORDERED: [UNRECOGNIZED DRUG - OTHER] TRANSDERM SCH (09:00)
[2020-02-12] MEDS ORDERED: cefTRIAXone 1 gm/50 mL NS BAG 1 GM/50 ML BAG IVPB SCH (12:00)
== END 2020-02-12 12:30 | disposition home or self-care (01) ==
LOC: MED 12:45 → ED 12:45 → MED 15:29
PROVIDERS: ADMIT Internal Medicine; ATTEND Internal Medicine